=== PATIENT | female | born 1985 | race Hispanic/Latino ===

== ENCOUNTER 2018-09-02 05:00 | Emergency (ER) | payer SELFPAY ==
[2018-09-02] MEDS ORDERED: Morphine 2 MG/ML SYRINGE ONE (06:15)
[2018-09-02] MEDS ORDERED: Morphine 4 MG/ML VIAL ONE (06:15)
== END 2018-09-02 07:10 | disposition home or self-care (01) ==
LOC: ERS 05:00
DX: K08.89 Other specified disorders of teeth and supporting structures (principal)
CPT/HCPCS: 96372; J2270